=== PATIENT | female | born 1940 | race Caucasian/White ===

== ENCOUNTER → 2016-06-02 | Outpatient (CLI) | payer MEDICARE ==
[~2016-06-02] MED LIST: AMLO5TAB2 PO; DORZ2SOL EACH EYE; DORZ2SOL7 EACH EYE; GABA100C4 PO; LEVO75TA3 PO; PRED20 PO; TRAV0.00 EACH EYE; VALT1TAB PO
[2016-06-02 11:38] LABS: BLOOD, URINE NEG (NEG); GLUCOSE,URINE NEG (NEG); KETONE, URINE NEG (NEG); MUCUS URINE FEW /lpf (OCC); NITRITE,URINE NEG (NEG); SQUAMOUS EPITHELIAL CELL URINE 1 /hpf (0-5); URINE COLOR LIGHT-YELLOW (YELLW/STRAW)
[2016-06-02 11:41] LABS: AUTOMATED NEUTROPHIL # 3.4 TH/MM3 (1.8-7.7); BASOPHIL # 0.1 TH/MM3 (0-0.2); BASOPHIL % 1.6 % (0.0-2.0); EOSINOPHIL # 0.3 TH/MM3 (0-0.4); EOSINOPHIL % 5.7 % (0.0-4.0); HEMO FLAGS DIFF FINAL; LYMPH % 22.8 % (9.0-44.0); LYMPHOCYTE # 1.4 TH/MM3 (1.0-4.8); MEAN CELL VOLUME 88.9 FL (80.0-100.0); MEAN CORPUSCULAR HGB CONC 32.6 % (32.0-36.0); MONO % 12.2 % (0.0-8.0); NEUT % 57.7 % (16.0-70.0); PLATELET COUNT 210 TH/MM3 (150-450); RED BLOOD COUNT 4.73 MIL/MM3 (4.00-5.30); RED CELL DISTRIBUTION WIDTH 13.4 % (11.6-17.2)
[2016-06-02 11:57] LABS: BICARBONATE 28.9 MEQ/L (21.0-32.0); POTASSIUM 4.2 MEQ/L (3.5-5.1)
--- NOTE | 2016-06-03 11:38 | EKG ---
Date Performed: 06/02/2016 Time Performed: 10:42:54 PTAGE: 75 years EKG: Sinus rhythm MINIMAL ST DEPRESSION BORDERLINE ECG NO PREVIOUS TRACING DOCTOR: Huber James Interpretating Date/Time 06/03/2016 11:36:53
== END ==
LOC: CPRE 10:15
PROVIDERS: ATTEND Obstetrics & Gynecology
DX: Z01.812 Encounter for preprocedural laboratory examination (principal); Z01.810 Encounter for preprocedural cardiovascular examination; Z01.811 Encounter for preprocedural respiratory examination; N81.89 Other female genital prolapse
CPT/HCPCS: 36415; 80048; 81001; 85025; 86850; 86900; 86901; 93005

== ENCOUNTER 2016-06-04 05:16 | Observation (INO) | payer MEDICARE ==
--- NOTE | 2016-06-02 11:07 | MH ---
cc: KJ PAGAN DATE OF ADMISSION 06/04/2016 DATE OF 1940 SCHEDULED PROCEDURE Cystocele repair, transobturator tape using Solex procedure, possible enterocele repair, possible rectocele repair. 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 HISTORY OF PRESENT CONDITION Rosalia is a 73-year-old white female para 2 status post CHULA-BSO in 1980 who came to see me on May 19, 2016. 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 She is originally from [place], lived in [place] and now in [place], specifically in [place]. Since [id number], she has noticed some pelvic pressure and increasing descent of the bladder. She acknowledges that she is unable to empty it completely. She has had several urinary tract infections. She has some urgency, occasional nocturia, but mostly describes what is an overflow type of situation because the bladder has to be fairly full before she can empty. On physical exam, the vaginal tissue is healthy. The bladder protrudes outside the vault with Valsalva when supine and even more so when she is standing. She has a minimal rectocele. She has normal rectal tone. The cuff is intact. She does not have a cervix, uterus and she has had a previous ectopic with removal of tube and ovary. I am not clear about the status of the remaining ovary, but we think it is gone. There is not a significant paravaginal defects noted. PAST MEDICAL HISTORY Her general health is good. She does have mild hypertension, hypothyroidism and glaucoma. PAST SURGICAL HISTORY Her other surgeries were ectopic her hysterectomy, an appendectomy in 1958 and then she had a hip fracture several years ago. MEDICATIONS Her medications are: 1. Amlodipine 5 mg daily 2. Eye drops for glaucoma 3. Diclofenac which she has been off for arthritis 4. Levothyroxine 75 mcg tablet. 5. She is frequently on Macrobid for urinary tract infection. SOCIAL HISTORY She does not smoke, drink or use illicit drugs. She is fairly active. FAMILY HISTORY Negative for breast, pelvic or colon cancer. PHYSICAL EXAM VITAL SIGNS: Her weight is 148. Her height is 5 foot 5 inches, BMI is 27.1. Her blood pressure was 130/70. NECK: She has no thyroid enlargement. LUNGS: Her lungs were clear. HEART: Her heart rate is regular with no murmur, heave or thrills. ABDOMEN: Benign with no hepatosplenomegaly. No CVA tenderness. No lymph nodes. PERINEUM: Shows a gaping introitus with a bladder procidentia. The tissue itself was fairly well healed. The urethra is kinked and most of the bladder is placed back into the vault. There are no masses on bimanual exam. She has a normal sphincter tone and a minimal rectocele. EXTREMITIES: Unremarkable with a minimal amount of varicosities. IMPRESSION Cystourethrocele of significant degree with the bladder procidentia, kinking of the urethra. Were the cystocele be repaired without a sling, we would unmask significant stress incontinence, therefore she is scheduled for an anterior repair, a transobturator tape with Solex and additional repair as needed via an enterocele or posterior repair. The risks, benefits, expectations, failure rate have all been reviewed in detail. We talked about the mesh and the context of a sling versus the mesh kits that are used for entire vaginal vault elevation. We have talked about the importance of postoperative restrictions so that she does not undo her repair. She has signed consents and is scheduled for morning. MD RAÚL Andersen/GRETEL /10:44 AM /10:56 AM
[~2016-06-04] VITALS: Ht 157.5 cm; Wt 68.1 kg
[~2016-06-04 05:16] MED LIST changes: -DORZ2SOL7 EACH EYE; -GABA100C4 PO; -PRED20 PO; -VALT1TAB PO
[2016-06-04] MEDS ORDERED: LACTATED RINGER'S 1000 ML IV SCH (05:45)
[2016-06-04] MEDS ORDERED: INSULIN HUMAN REGULAR 1,000 UNITS/10 ML VIAL SQ PRN (05:45)
[2016-06-04] MEDS ORDERED: ceFAZolin 2 GM PREMIX 50 ML IV SCH (05:45)
[2016-06-04] MEDS ORDERED: SODIUM CHLORID 0.9% 500 ML IV SCH (05:45)
[2016-06-04] MEDS ORDERED: METOPROLOL TARTRATE 25 MG TAB PO PRN (05:45)
[2016-06-04 05:58] VITALS: BP 142/75; PULSE 69; RESP 16; TEMP 98.4; O2SAT 97
[2016-06-04] MEDS ORDERED: DORZ2SOL7 EACH EYE (05:58)
[2016-06-04] MEDS ORDERED: BUPIVACAINE/EPINEPHRINE 0.25% PF 30 ML VIAL ONE (06:31)
[2016-06-04] MEDS ORDERED: ESTROGENS CONJUGATED VAG CREA 15 APPL/30 GM TUBE ONE (06:31)
[2016-06-04] MEDS ORDERED: MIDAZOLAM HCL 2 MG/2 ML VIAL ONE (07:21)
[2016-06-04] MEDS ORDERED: DEXAMETHASONE SOD PHOS 4 MG/ML VIAL ONE (07:29)
[2016-06-04] MEDS ORDERED: ACETAMINOPHEN 1000 MG/100 ML VIAL IV ONE (07:29)
[2016-06-04] MEDS ORDERED: ONDANSETRON HCL 4 MG/2 ML VIAL ONE (07:29)
[2016-06-04] MEDS ORDERED: FAMOTIDINE 20 MG/2 ML VIAL ONE (07:29)
[2016-06-04] MEDS ORDERED: fentaNYL CITRATE 250 MCG/5 ML AMP ONE (07:29)
--- NOTE | 2016-06-04 09:42 | PD.OP ---
Operative Report Date of Surgery: Jun 04, 2016 Preoperative Diagnosis: bladder procidentia with incontinence and retention urethrocele Postoperative Diagnosis: same, small enterocele Procedure: anterior repair, TOT (solyx), enterocele, cystoscopy Anesthesia: GET Surgeon: Mandy Guzman Advanced Manufacturing Associate(s): Leslie MS3 Operation and Findings: dictated packing in place needs voiding trial in am before discharge Mandy Guzman MD Jun 04, 2016 09:42
[2016-06-04] MEDS ORDERED: *ONDANSETRON 4 MG VIAL PERIprocedural Use ONLY ONE (09:43)
[2016-06-04] MEDS ORDERED: ACETAMINOPHEN/HYDROcodone 325 MG/5 MG TAB PO PRN (09:45)
[2016-06-04] MEDS ORDERED: oxyCODONE/ACETAMINOPHEN 5 MG/325 MG TAB PO PRN (09:45)
[2016-06-04] MEDS ORDERED: PROMETHAZINE INJ 25 MG/ML VIAL IM PRN (09:45)
[2016-06-04] MEDS ORDERED: ZOLPIDEM TARTRATE 5 MG TAB PO PRN (09:45)
[2016-06-04] MEDS ORDERED: diphenhydrAMINE HCL 25 MG CAP PO PRN (09:45)
[2016-06-04] MEDS ORDERED: IBUPROFEN 600 MG TAB PO PRN (09:45)
[2016-06-04] MEDS ORDERED: ONDANSETRON HCL 4 MG/2 ML VIAL IVP PRN (09:45)
[2016-06-04] MEDS ORDERED: SODIUM CHLORIDE 0.9% FLUSH 5 ML FLUSH FLUSH PRN (09:45)
[2016-06-04] MEDS ORDERED: GLYCOPYRROLATE 0.2 MG/ML VIAL ONE (09:51)
[2016-06-04] MEDS: LACTATED RINGER'S 1000 ML INJ 1,000 ML IV SCH ×2 (10:07→19:57)
[2016-06-04] MEDS ORDERED: PHENYLEPH/NS 1000 MCG/10 ML SYR IV ONE (12:00)
[2016-06-04] MEDS ORDERED: PROPOFOL 200 MG/20 ML AMP IV ONE (12:00)
[2016-06-04] MEDS ORDERED: ONDANSETRON HCL 4 MG/2 ML VIAL IV PUSH ONE (12:00)
[2016-06-04] MEDS ORDERED: ePHEDrine/NS 25 MG/5 ML SYR IV ONE (12:00)
[2016-06-04] MEDS ORDERED: LACTATED RINGER'S 1000 ML INJ 1,000 ML IV ONE (12:00)
[2016-06-04] MEDS ORDERED: NEOSTIGMINE 3 MG/3 ML SYR IV ONE (12:00)
[2016-06-04] MEDS: DORZOLAMIDE/TIMOLOL OPTH SOLN 10 ML BTL EACH EYE SCH ×2 (13:00→17:16)
[2016-06-04 13:50] VITALS: BP 112/57; PULSE 93; RESP 16; TEMP 97.1; O2SAT 95
[2016-06-04] MEDS: DOCUSATE SODIUM 100 MG CAP PO SCH ×2 (14:24→19:52)
[2016-06-04 16:00] VITALS: BP 129/69; PULSE 88; RESP 16; TEMP 97.7; O2SAT 95
[2016-06-04] MEDS: SODIUM CHLORIDE 0.9% FLUSH 5 ML FLUSH FLUSH SCH (19:55)
[2016-06-04 20:00] VITALS: BP 111/55; PULSE 71; RESP 16; TEMP 97.7; O2SAT 95
--- NOTE | 2016-06-04 20:29 | HHI.PR ---
Subjective Remarks Doing well, pain is well controlled, eating well. Had a bagle no pain Objective Vital Signs Vital Signs Date Time Temp Pulse Resp B/P Pulse Ox O2 Delivery O2 Flow Rate FiO2 06/04/16 16:00 97.7 88 16 129/69 95 06/04/16 13:50 97.1 93 16 112/57 95 06/04/16 13:00 97.5 61 13 120/62 97 Nasal Cannula 2 06/04/16 12:00 58 13 127/65 96 Nasal Cannula 2 06/04/16 11:00 57 13 118/70 97 Nasal Cannula 2 06/04/16 10:30 57 13 119/69 98 Nasal Cannula 2 06/04/16 10:15 61 12 129/69 97 Nasal Cannula 2 06/04/16 10:00 83 12 127/82 97 Nasal Cannula 2 06/04/16 09:50 49 12 97 06/04/16 09:45 68 12 126/69 100 Nasal Cannula 2 06/04/16 09:44 97.8 52 12 131/72 99 Nasal Cannula 2 06/04/16 05:58 98.4 69 16 142/75 97 I/O 06/03/16 06/03/16 06/03/16 06/04/16 06/04/16 06/04/16 07:00 15:00 23:00 07:00 15:00 23:00 Intake Total 1576 ml 716 ml Output Total 1200 ml 700 ml Balance 376 ml 16 ml Intake Oral 150 ml 240 ml IV Total 426 ml 476 ml Other 1000 ml Output Urine Total 1100 ml 700 ml Estimated Blood Loss 100 ml Objective Remarks Chest is clear, regular rate and rhythm. Abdomen is soft and non-distended. pad dry Ext no CCE. A/P Assessment and Plan Night of surgery Doing well Remove pack in am and do voiding trial home with/without catheter Mandy Guzman MD Jun 04, 2016 20:29
--- NOTE | 2016-06-04 20:32 | HHI.DCPOC ---
Discharge Care Plan Report Symptoms to Your Doctor -Temperate above 100.5 degrees -Redness, of incision or excessive or foul smelling drainage -Unusual pain or calf pain -Increased vaginal bleeding -Painful or difficulty urinating -Feelings of extreme sadness or anxiety after 2 weeks Goals to Promote Your Health * To prevent worsening of your condition and complications * To maintain your health at the optimal level Directions to Meet Your Goals Take your medications as prescribed Follow your dietary instruction Follow activity as directed Ensure plenty of rest for recovery Drink fluids for hydration Keep your appointments as scheduled Take your immunizations and boosters as scheduled If your symptoms worsen call your PCP, if no PCP go to Urgent Care Center or Emergency Room Smoking is Dangerous to Your Health. Avoid second hand smoke Call the 24-hour crisis hotline for domestic abuse at Mandy Guzman MD Jun 04, 2016 20:31
[2016-06-04] MEDS ORDERED: LATANOPROST 0.005% OPHT SOLN 2.5 ML BTL EACH EYE SCH (21:00)
[2016-06-05] VITALS: BP 130/69; PULSE 70; RESP 16; TEMP 97.2; O2SAT 97
[2016-06-05] MEDS: LACTATED RINGER'S 1000 ML INJ 1,000 ML IV SCH ×2 (01:36→09:36)
[2016-06-05 04:00] VITALS: BP 134/66; PULSE 87; RESP 16; TEMP 96.4; O2SAT 93
[2016-06-05 07:17] LABS: AUTOMATED NEUTROPHIL # 7.6 TH/MM3 (1.8-7.7); BASOPHIL # 0.1 TH/MM3 (0-0.2); BASOPHIL % 0.5 % (0.0-2.0); EOSINOPHIL % 0.3 % (0.0-4.0); HEMATOCRIT 34.7 % (35.0-46.0); HEMO FLAGS DIFF FINAL; LYMPHOCYTE # 1.7 TH/MM3 (1.0-4.8); MEAN CELL VOLUME 88.8 FL (80.0-100.0); MEAN CORPUSCULAR HEMOGLOBIN 29.1 PG (27.0-34.0); MEAN CORPUSCULAR HGB CONC 32.7 % (32.0-36.0); MONO % 10.9 % (0.0-8.0); NEUT % 72.3 % (16.0-70.0); PLATELET COUNT 181 TH/MM3 (150-450); RED CELL DISTRIBUTION WIDTH 13.8 % (11.6-17.2); WHITE BLOOD COUNT 10.5 TH/MM3 (4.0-11.0)
[2016-06-05 07:40] LABS: BICARBONATE 28.3 MEQ/L (21.0-32.0); POTASSIUM 3.8 MEQ/L (3.5-5.1)
[2016-06-05 08:00] VITALS: BP 120/72; PULSE 61; RESP 16; TEMP 97.3; O2SAT 97
--- NOTE | 2016-06-05 08:22 | HHI.PR ---
Subjective Remarks Doing well, pain is well controlled, eating well. voided after saline installed successfully packing out with no bleeding Objective Vital Signs Vital Signs Date Time Temp Pulse Resp B/P Pulse Ox O2 Delivery O2 Flow Rate FiO2 06/05/16 04:00 96.4 87 16 134/66 93 06/05/16 00:00 97.2 70 16 130/69 97 06/04/16 16:00 97.7 88 16 129/69 95 06/04/16 13:50 97.1 93 16 112/57 95 06/04/16 13:00 97.5 61 13 120/62 97 Nasal Cannula 2 06/04/16 12:00 58 13 127/65 96 Nasal Cannula 2 06/04/16 11:00 57 13 118/70 97 Nasal Cannula 2 06/04/16 10:30 57 13 119/69 98 Nasal Cannula 2 06/04/16 10:15 61 12 129/69 97 Nasal Cannula 2 06/04/16 10:00 83 12 127/82 97 Nasal Cannula 2 06/04/16 09:50 49 12 97 06/04/16 09:45 68 12 126/69 100 Nasal Cannula 2 06/04/16 09:44 97.8 52 12 131/72 99 Nasal Cannula 2 I/O 06/04/16 06/04/16 06/04/16 06/05/16 06/05/16 06/05/16 07:00 15:00 23:00 07:00 15:00 23:00 Intake Total 1576 ml 716 ml 650 ml Output Total 1200 ml 700 ml 1100 ml Balance 376 ml 16 ml -450 ml Intake Oral 150 ml 240 ml 650 ml IV Total 426 ml 476 ml Other 1000 ml Output Urine Total 1100 ml 700 ml 1100 ml Estimated Blood Loss 100 ml # Bowel Movements 0 Result Diagram: 06/05/16 0613 06/05/16 0613 Objective Remarks Chest is clear, regular rate and rhythm. Abdomen is soft and non-distended. pad dry Ext no CCE. A/P Assessment and Plan home today counseled on constipation and pain meds and activity see in one Mandy Ramírez MD Jun 05, 2016 08:22
--- NOTE | 2016-06-05 08:23 | HHI.DCPOC ---
Discharge Care Plan Report Symptoms to Your Doctor -Temperate above 100.5 degrees -Redness, of incision or excessive or foul smelling drainage -Unusual pain or calf pain -Increased vaginal bleeding -Painful or difficulty urinating -Feelings of extreme sadness or anxiety after 2 weeks Goals to Promote Your Health * To prevent worsening of your condition and complications * To maintain your health at the optimal level Directions to Meet Your Goals Take your medications as prescribed Follow your dietary instruction Follow activity as directed Ensure plenty of rest for recovery Drink fluids for hydration Keep your appointments as scheduled Take your immunizations and boosters as scheduled If your symptoms worsen call your PCP, if no PCP go to Urgent Care Center or Emergency Room Smoking is Dangerous to Your Health. Avoid second hand smoke Call the 24-hour crisis hotline for domestic abuse at Mandy Guzman MD Jun 05, 2016 08:23
[2016-06-05] MEDS ORDERED: amLODIPine BESYLATE 5 MG TAB PO SCH (09:00)
[2016-06-05] MEDS ORDERED: LEVOTHYROXINE SODIUM 75 MCG TAB PO SCH (09:00)
[2016-06-05] MEDS: DORZOLAMIDE/TIMOLOL OPTH SOLN 10 ML BTL EACH EYE SCH (09:00)
[2016-06-05] MEDS ORDERED: PNEUMOCOCCAL POLYVALENT INJ 25 MCG/0.5 ML SYR IM ONE (10:00)
[2016-06-05] MEDS: DOCUSATE SODIUM 100 MG CAP PO SCH (10:10)
[2016-06-05] MEDS: SODIUM CHLORIDE 0.9% FLUSH 5 ML FLUSH FLUSH SCH (10:11)
--- NOTE | 2016-06-07 05:50 | MP ---
cc: KJ PAGAN DATE OF SURGERY: 06/04/2016 PREOPERATIVE DIAGNOSIS: Bladder procidentia with a kinked urethra, alternating overflow incontinence with retention. POSTOPERATIVE DIAGNOSIS: Bladder procidentia with a kinked urethra, alternating overflow incontinence with retention. Small enterocele. PROCEDURE: Cystocele repair, transobturator tape placement using the Solyx System. Enterocele repair. Cystourethroscopy. ANESTHESIA: General. SURGEON: Aleyda Pagan MD. RISK CONTROL FIELD REPRESENTATIVE Didi Nelson, third year medical student. FINDINGS Rosalia had a procidentia of the bladder that was apparent even under general anesthesia in dorsal lithotomy position. The tissue was quite healthy, however, and lent itself well to the vaginal mucosa being dissected off the bladder. Bladder plication was performed then the Solyx tape was placed without difficulty and then cystoscopy was done to show a normal bladder, normal ureteral orifices, normal flow and no evidence of iatrogenic injury. The cystocele repair was then completed, almost to the apex where the enterocele was encountered and closed with a pursestring independent of repair of the cystocele. Final vaginal mucosa was closed and bleeding was negligible. Packing was placed and the Malik was left for one day. Sponge, instrument, needle count was correct and she tolerated the procedure well and went to recovery. DESCRIPTION OF PROCEDURE: The patient was identified as Rosalia Degroot. Her permit was reviewed with her. She was taken to the operating room, placed under general endotracheal anesthesia in the dorsolithotomy position. She received two grams of Ancef, one hour prior. She was prepped and draped in the usual sterile fashion. The Malik catheter was placed by the agricultural equipment operator after, and then a time-out was performed. A retractor was placed in the posterior vaginal vault. An Allis was placed 1 cm below the urethra and then a second Allis was placed in the midline and the midline was infiltrated with Marcaine with epinephrine. Then the vaginal mucosa was incised in the midline and gently dissected off the underlying bladder to a very significant extent to completely elevate the bladder and place pursestrings through the bladder muscle but not to the bladder mucosa to keep it elevated. These were all with chromic. Then the undermining toward the axilla on either side underneath the pubic ramus was performed, and then the Solyx was placed first through the right urogenital diaphragm and then through the left, touching the urethra but not too snug. Then mattress sutures were applied and then the vaginal mucosa was trimmed. The enterocele was entered at the very apex of this, and this was closed with a pursestring, and then the vaginal mucosa was closed with interrupted and some running suture. Packing was then placed and she was put in dorsal supine position, awoken and taken to the Recovery Room in stable condition. MD RAÚL Andersen/YAYO /12:24 PM /5:26 AM
== END 2016-06-05 12:00 | disposition home or self-care (01) ==
LOC: HSDC 05:16 → EDUNIT# 07:30 → HSDI 09:40 → HOCA 13:44
PROVIDERS: ADMIT Obstetrics & Gynecology; ATTEND Obstetrics & Gynecology
DX: N81.3 Complete uterovaginal prolapse (principal); N39.490 Overflow incontinence; N81.0 Urethrocele; R33.9 Retention of urine, unspecified; K46.9 Unspecified abdominal hernia without obstruction or gangrene; Z87.440 Personal history of urinary (tract) infections; Z23 Encounter for immunization
CPT/HCPCS: 00942; 57240; 57288; 80048; 85025; 90732; 94150; C1771; G0009; G0378; J0131; J0690; J1100; J2250; J2370; J2405; J2710; J3010; J7120; 90471

== ENCOUNTER 2016-06-20 12:36 | Emergency (ER) | payer MEDICARE ==
[~2016-06-20] VITALS: Ht 157.5 cm; Wt 68.0 kg
[~2016-06-20 12:36] MED LIST changes: -DORZ2SOL EACH EYE; +DORZ2SOL7 EACH EYE
[2016-06-20 12:45] VITALS: BP 181/85; PULSE 77; RESP 18; TEMP 98.3; O2SAT 100
--- NOTE | 2016-06-20 12:52 | PD ---
HPI Chief Complaint: Hip Pain Time Seen by Provider: 12:51 Travel History International Travel<30 days: No Contact w/Intl Traveler<30days: No Traveled to known affect area: No History of Present Illness HPI 75-year-old female presents the emergency department with five-day history of left lower extremity burning pain. Patient states she went to cross her legs on Wednesday and developed sudden onset left lower extremity pain in the thigh and anterior howard which she describes as a constant burning pain. It is worse with ambulation. Patient has been taking oxycodone that she received after recent bladder sling surgery on June 04 at night to help her sleep. [facility], and had extensive workup including x- rays and CT scan without significant findings. Patient was given Toradol and Naprosyn to take. Patient states those medications have not helped whatsoever. Patient states the pain seems to be worsening. She denies fever, chills, difficulty urinating, or abdominal pain or bladder pain. She denies weakness, or numbness of the lower extremity. She denies any rash. She denies any back pain whatsoever. She has no known drug allergies. PFSH Past Medical History Cancer: No Cardiovascular Problems: No (heart cath 2000-negative) Diabetes: No Endocrine: Yes Genitourinary: Yes (prolapsed bladder, incontinence) Hepatitis: No Hiatal Hernia: No Immune Disorder: No Musculoskeletal: No Neurologic: No Psychiatric: No Reproductive: No Respiratory: No Thyroid Disease: Yes Past Surgical History Abdominal Surgery: Yes (appendectomy, ectopic removal via abdomen) AICD: No Body Medical Devices: Pins in L hip, pins in R foot Cardiac Surgery: No Ear Surgery: No Endocrine Surgery: No Eye Surgery: Yes (bilat cataract) Genitourinary Surgery: No Gynecologic Surgery: Yes (hysterectomy 1980, labial cyst removed) Joint Replacement: No Oral Surgery: Yes (for bridges) Pacemaker: No Thoracic Surgery: No Social History Alcohol Use: Yes Tobacco Use: No Substance Use: No Allergies-Medications (Allergen,Severity, Reaction): Coded Allergies: No Known Allergies (Unverified , 06/20/16) Reported Meds & Prescriptions Reported Meds & Active Scripts Active Prednisone 20 Mg Tab 20 Mg PO BID Gabapentin 100 Mg Cap 100 Mg PO TID Valtrex (Valacyclovir HCl) 1 Gm Tab 1,000 Mg PO BID Reported Cosopt Opth Drops (Dorzolamide-Timolol Opth Drops) 22.3-6.8 Mg/Ml Soln 1 Drop EACH EYE TID Travatan Z Opth Drops (Travoprost) 0.004 % Soln 1 Drop EACH EYE HS Levothyroxine (Levothyroxine Sodium) 75 Mcg Tab 75 Mcg PO DAILY Amlodipine (Amlodipine Besylate) 5 Mg Tab 5 Mg PO DAILY Review of Systems Except as stated in HPI: all other systems reviewed are Neg General / Constitutional: No: Fever Eyes: No: Visual changes HENT: No: Headaches Cardiovascular: No: Chest Pain or Discomfort Respiratory: No: Shortness of Breath Gastrointestinal: No: Abdominal Pain Genitourinary: No: Dysuria Musculoskeletal: Positive: Myalgias, Pain (see history present illness.), No: Arthralgias, Limited ROM Skin: No Rash Neurologic: No: Weakness Psychiatric: No: Depression Endocrine: No: Polydipsia Hematologic/Lymphatic: No: Easy Bruising Physical Exam Narrative GENERAL: Patient appears in no acute distress. SKIN: Warm and dry. Normal color. Normal turgor. No rash. HEAD: Atraumatic. Normocephalic. EYES: Pupils equal and round. No scleral icterus. No injection or drainage. ENT: No nasal bleeding or discharge. Mucous membranes pink and moist. Pharynx is normal. NECK: Trachea midline. Neck is supple nontender. CARDIOVASCULAR: Regular rate and rhythm. RESPIRATORY: No accessory muscle use. Clear to auscultation. Breath sounds equal bilaterally. GASTROINTESTINAL: Abdomen soft, non-tender, nondistended. Hepatic and splenic margins not palpable. No CVA tenderness. MUSCULOSKELETAL: Extremities without clubbing, cyanosis, or edema. No obvious deformities. The left leg appears normal without edema or effusion. Lower extremity Range of motion is normal with normal strength. Patient has negative straight leg raise pain in both lower extremities.. Patient has increased pain with light touch to the left anterior howard and left medial lateral thigh. There is no increased pain with range of motion of the hip on the left. NEUROLOGICAL: Awake and alert. No obvious cranial nerve deficits. Motor grossly within normal limits. Five out of 5 muscle strength in the arms and legs. Normal speech. PSYCHIATRIC: Appropriate mood and affect; insight and judgment normal. Data Data Last Documented VS Vital Signs Date Time Temp Pulse Resp B/P Pulse Ox O2 Delivery O2 Flow Rate FiO2 3/18/17 12:45 98.3 77 18 181/85 100 MDM Medical Decision Making Medical Screen Exam Complete: Yes Emergency Medical Condition: Yes Differential Diagnosis Left posterior knee pain. Neuralgia. Possible early shingles. Possible pinched nerve. Narrative Course Patient is medically stable at time of exam. Patient is discussed with Dr. Michele who felt further imaging or lab tests would not be helpful. Patient will be treated with Valtrex 1 g twice a day 5 days. Patient is given prednisone 20 mg twice a day 5 days. Patient started on gabapentin 100 mg 3 times a day to be increased after 3 days as discussed. Recommend the patient follow up with her primary care physician in a week to ensure improvement. MRI may be warranted if symptoms do not improve or worsen in the next week. Patient can take her pain medication that she has at home as needed to help sleep. Patient can always return to emergency department worsening symptoms as needed. Diagnosis Primary Impression: Neuralgia of left lower extremity Referrals: Primary Care Physician 1 week Patient Instructions: Gabapentin (By mouth), General Instructions, Prednisone ( By mouth) Med/Other Pt SpecificInfo: Prescription(s) given Scripts Prednisone 20 Mg Tab20 Mg PO BID #10 TAB Prov:Jacinto Jara MD 06/20/16 Gabapentin 100 Mg [id number] Mg PO TID #90 CAP Ref 0 Prov:Jacinto Jara MD 06/20/16 Valacyclovir (Valtrex)1 Gm Tab1,000 Mg PO BID #10 TAB Ref 0 Prov:Jacinto Jara MD 06/20/16 Disposition: 01 DISCHARGE HOME Condition: Stable Han Bedoya Jun 20, 2016 12:52
[2016-06-20] MEDS ORDERED: VALT1TAB PO (13:11)
[2016-06-20] MEDS ORDERED: PRED20 PO (13:11)
[2016-06-20] MEDS ORDERED: GABA100C4 PO (13:11)
[2016-06-20 14:02] VITALS: BP 146/75
--- NOTE | 2016-06-20 14:08 | PD ---
Data Data Last Documented VS Vital Signs Date Time Temp Pulse Resp B/P Pulse Ox O2 Delivery O2 Flow Rate FiO2 06/20/16 14:02 67 18 146/75 96 06/20/16 12:45 98.3 Orders Dexamethasone Inj (Decadron Inj) (06/20/16 14:15) Us Leg Venous Doppler (06/20/16 14:06) MDM Supervised Visit with ALBERT: Yes Narrative Course Patient is 75 year old female presents with unilateral numbness and tingling for the past few days. No saddle anesthesias, no acute difficulty urinating. Appears well. Low clinical suspicion for DVT, received a call from Dr. Guzman, patient verbally consented for me to speak to Dr. Guzman about her. Dr. Guzman concerned for DVT versus radiculopathy. DVT US obtained and negative. Patient appears well. Short course of steroid prescribed for likely radiculopathy/sciatica. F/U with PCP. Patient grateful. Diagnosis Primary Impression: Neuralgia of left lower extremity Referrals: Primary Care Physician 1 week Patient Instructions: General Instructions, Prednisone (By mouth), Gabapentin ( By mouth), Chronic Pain (ED) Departure Forms: Tests/Procedures Scripts Prednisone 20 Mg Tab20 Mg PO BID #10 TAB Prov:Jacinto Jara MD 06/20/16 Gabapentin 100 Mg [id number] Mg PO TID #90 CAP Ref 0 Prov:Jacinto Jara MD 06/20/16 Valacyclovir (Valtrex)1 Gm Tab1,000 Mg PO BID #10 TAB Ref 0 Prov:Jacinto Jara MD 06/20/16 Disposition: 01 DISCHARGE HOME Condition: Stable Jacinto Jara MD Jun 20, 2016 14:08
[2016-06-20] MEDS ORDERED: DEXAMETHASONE SOD PHOS 20 MG/5 ML VIAL IM ONE (14:15)
--- NOTE | 2016-06-20 14:44 | RADRPT ---
EXAM DATE/TIME: 06/20/2016 14:23 [facility] COMPARISON: No previous studies available for comparison. INDICATIONS : Left leg burning/pain. MEDICAL HISTORY : Prolapsed bladder. Thyroid disease. SURGICAL HISTORY : Appendectomy. Hysterectomy. Ectopic . ENCOUNTER: Initial ACUITY: 4 - 6 days PAIN SCORE: 7/10 LOCATION: Left leg. TECHNIQUE: Venous ultrasound of the leg was performed from the inguinal ligament to the proximal calf. Real-kamilah e, color Doppler and spectral tracing, compression and augmentation techniques were used. FINDINGS: There is normal compressibility of the deep venous system from the inguinal region to the proximal ca lf. No echogenic clot is seen in the lumen of the common femoral, femoral, popliteal, and posterior tibial veins. There is a normal response of the venous system to proximal and distal augmentation an d respiration. CONCLUSION: No evidence of DVT. Kev Ernst MD on June 20, 2016 at 14:42 Board Certified Radiologist. This report was verified electronically.
== END 2016-06-20 16:24 | disposition home or self-care (01) ==
LOC: NEPC 12:36
DX: M79.2 Neuralgia and neuritis, unspecified (principal)
CPT/HCPCS: 93971; 96372; 99283; J1100